=== PATIENT | male | born 1960 | race Caucasian/White ===

== ENCOUNTER 2025-03-25 19:35 | Inpatient (IN) | payer OTHER ==
[~2025-03-25] VITALS: Ht 177.8 cm; Wt 213.2 kg
[2025-03-25 20:49] LABS: HEMATOCRIT. 35.1 % (42.0-52.0); HEMOGLOBIN. 11.4 g/dL (14.0-18.0); MEAN PLATELET VOLUME 9.0 fl (7.4-10.4); PLATELET 228 x1000/uL (130-400); RED BLOOD CELL COUNT 4.11 mill/uL (4.7-6.1); RED CELL DISTRIBUTION WIDTH 14.9 % (11.6-14.6)
[2025-03-25 20:57] LABS: CREATININE 2.3 mg/dL (0.6-1.3); UREA NITROGEN BLOOD 41 mg/dL (9-23)
[2025-03-25 21:05] LABS: TROPONIN I HIGH SENSITIVITY 69 ng/L (3.0-53)
[2025-03-25] MEDS: ASPIRIN 325MG EC TABLET PO ONE (21:12)
[2025-03-25 21:14] LABS: BAND% 8.0 % (1.0-6.0); LYMPHOCYTES % MANUAL 13.0 % (20.0-50.0); METAMYELOCYTES % 1.0 % (0-0); MONOCYTES % MANUAL 4.0 % (2.0-8.0); NEUTROPHILS % MANUAL 74.0 % (45.0-75.0); PLATELET ESTIMATE NORMAL
[2025-03-25] MEDS: SODIUM CHLORIDE 0.9% (SEPSIS BOLUS) IV NR (21:48)
[2025-03-25 21:57] LABS: INR 1.1
[2025-03-25] MEDS: CEFTRIAXONE 1GM/50ML 50 ML IV NR (21:59)
[2025-03-25 22:17] LABS: LACTIC ACID 3.0 mmol/L (0.4-2.0)
[2025-03-26] MEDS ORDERED: IPRATROPIUM/ALBUTEROL 0.5-3(2.5)MG/3ML NEB HHN PRN (00:15)
[2025-03-26] MEDS ORDERED: ONDANSETRON HCL 4MG/2ML INJ IV PRN (00:15)
[2025-03-26] MEDS ORDERED: ACETAMINOPHEN 325MG TABLET PO PRN ×2 (00:15)
[2025-03-26] MEDS: SODIUM CHLORIDE 0.9% 1,000 ML IV SCH (01:15)
[2025-03-26] MEDS ORDERED: DEXTROSE 50% WATER 50ML SYRINGE IV PRN (01:15)
[2025-03-26 02:25] LABS: CLARITY URINE CLEAR (CLEAR); COLOR URINE YELLOW (YELLOW); GLUCOSE URINE NEGATIVE (NEGATIVE); KETONES URINE NEGATIVE (NEGATIVE); LEUKOCYTE ESTERASE URINE TRACE (NEGATIVE); NITRITE URINE NEGATIVE (NEGATIVE); OCCULT BLOOD URINE NEGATIVE (NEGATIVE); PH URINE 5.0 (4.5-8.0); PROTEIN URINE NEGATIVE (NEGATIVE); SPECIFIC GRAVITY URINE 1.014 (1.005-1.030); UROBILINOGEN URINE 0.2 E.U./dL (0.2-1.0)
[2025-03-26 02:28] LABS: *AMPHETAMINES SCREEN URINE NEGATIVE (NEGATIVE); *BARBITURATES SCREEN URINE NEGATIVE (NEGATIVE); *BENZODIAZEPINES SCREEN URINE NEGATIVE (NEGATIVE); *COCAINE SCREEN URINE NEGATIVE (NEGATIVE); CANNABINOID URINE SCREEN NEGATIVE (NEGATIVE); ECSTASY MDMA SCREEN URINE NEGATIVE (NEGATIVE); METHADONE URINE SCREEN NEGATIVE (NEGATIVE); OPIATES URINE SCREEN NEGATIVE (NEGATIVE); PHENCYCLIDINE URINE SCREEN NEGATIVE (NEGATIVE)
[2025-03-26 02:41] LABS: BACTERIA URINE TRACE; RBC URINE NONE SEEN /hpf (0-2); SQUAMOUS EPITHELIAL CELL URINE RARE /lpf (RARE/1+)
[2025-03-26 03:00] VITALS: BP 149/68; PULSE 96; RESP 20; TEMP 37.4
[2025-03-26] MEDS ORDERED: POTA-205 MT (03:35)
[2025-03-26] MEDS ORDERED: FURO40TA5 PO (03:41)
[2025-03-26] MEDS ORDERED: ATOR20TA PO (03:41)
[2025-03-26] MEDS ORDERED: LISI-649 PO (03:42)
[2025-03-26] MEDS: ENOXAPARIN 150MG/ML SYR SUBCUT SCH (03:44)
[2025-03-26] MEDS: BLOOD SUGAR DIAGNOSTIC STRIP TEST SCH (07:20)
[2025-03-26] MEDS: INSULIN LISPRO 100 UNITS/ML SUBCUT SCH (07:50)
[2025-03-26 08:00] VITALS: BP 155/68; PULSE 101; RESP 20; TEMP 38.5; O2SAT 99
[2025-03-26] MEDS: ASPIRIN 81MG EC TABLET PO SCH (09:51)
[2025-03-26] MEDS: FAMOTIDINE 20MG/2ML VIAL IV SCH (09:52)
[2025-03-26 11:47] LABS: CREATININE 1.8 mg/dL (0.6-1.3); TRIGLYCERIDE 58 mg/dL (0-150); UREA NITROGEN BLOOD 31 mg/dL (9-23)
[2025-03-26 11:48] LABS: ASPARTATE AMINOTRANSFERASE 68 IU/L (<34); LDL CHOLESTEROL 49 mg/dL (5-100)
[2025-03-26 11:49] LABS: BILIRUBIN DIRECT 0.2 mg/dL (<=3.0); BILIRUBIN TOTAL 0.5 mg/dL (0.1-1.0); PHOSPHORUS 2.6 mg/dL (2.5-4.9); PROTEIN TOTAL 7.5 g/dL (6.0-8.3)
[2025-03-26 11:51] LABS: T4 FREE 0.96 ng/dL (0.89-1.76)
[2025-03-26 12:00] VITALS: BP 124/68; PULSE 111; RESP 20; TEMP 38.2; O2SAT 97
[2025-03-26 12:23] LABS: LACTIC ACID 2.6 mmol/L (0.4-2.0)
[2025-03-26 12:40] LABS: TROPONIN I HIGH SENSITIVITY 3090 ng/L (3.0-53)
[2025-03-26 14:45] LABS: CORTISOL 23.5 ucg/dL
[2025-03-26 16:00] VITALS: BP 124/65; PULSE 113; RESP 20; TEMP 37.7; O2SAT 100
[2025-03-26 18:26] LABS: TROPONIN I HIGH SENSITIVITY 3268 ng/L (3.0-53)
[2025-03-26] MEDS: VANCOMYCIN 2GM PMX (XELLIA) 400 ML IV SCH (19:15)
[2025-03-26 20:00] VITALS: BP 135/66; PULSE 102; RESP 22; TEMP 36.2; O2SAT 99
[2025-03-26] MEDS: ATORVASTATIN CALCIUM 40MG TABLET PO SCH (21:36)
[2025-03-27] VITALS: BP 115/51; PULSE 96; RESP 22; TEMP 36.2; O2SAT 97
[2025-03-27 04:00] VITALS: BP 129/64; PULSE 87; RESP 22; TEMP 36.3; O2SAT 99
[2025-03-27 04:30] LABS: TROPONIN I HIGH SENSITIVITY 2561 ng/L (3.0-53)
[2025-03-27 06:13] LABS: HEMATOCRIT. 29.5 % (42.0-52.0); HEMOGLOBIN. 9.6 g/dL (14.0-18.0); MEAN PLATELET VOLUME 8.8 fl (7.4-10.4); PLATELET 164 x1000/uL (130-400); RED BLOOD CELL COUNT 3.53 mill/uL (4.7-6.1); RED CELL DISTRIBUTION WIDTH 15.2 % (11.6-14.6)
[2025-03-27 06:34] LABS: CREATININE 1.7 mg/dL (0.6-1.3); UREA NITROGEN BLOOD 27.0 mg/dL (9-23)
[2025-03-27 06:49] LABS: TROPONIN I HIGH SENSITIVITY 2054.0 ng/L (3.0-53)
[2025-03-27 08:00] VITALS: BP 107/60; PULSE 95; RESP 22; TEMP 36.5; O2SAT 97
[2025-03-27 12:00] VITALS: BP 119/44; PULSE 94; RESP 18; TEMP 36.7; O2SAT 99
[2025-03-27] MEDS ORDERED: TETRACAINE/BENZOCAINE/BUTAMBEN 20 GM SPRAY MM ONE (13:15)
[2025-03-27] MEDS ORDERED: LIDOCAINE 2% 6ML GLYDO ONE (13:15)
[2025-03-27 14:23] LABS: BAND% 12.0 % (1.0-6.0); EOSINOPHILS % MANUAL 1.0 % (0.0-5.0); LYMPHOCYTES % MANUAL 3.0 % (20.0-50.0); MONOCYTES % MANUAL 1.0 % (2.0-8.0); NEUTROPHILS % MANUAL 83.0 % (45.0-75.0)
[2025-03-27 14:25] LABS: PLATELET ESTIMATE NORMAL
[2025-03-27] MEDS ORDERED: FENTANYL CITRATE/PF 50MCG/ML 2ML VIAL ONE (14:39)
[2025-03-27] MEDS ORDERED: MIDAZOLAM HCL 5 MG/5 ML VIAL ONE (14:39)
[2025-03-27] MEDS ORDERED: DIPHENHYDRAMINE 50MG/ML VIAL ONE (14:46)
[2025-03-27 15:10] LABS: TROPONIN I HIGH SENSITIVITY 1726 ng/L (3.0-53)
[2025-03-27] MEDS: VANCOMYCIN 1.5GM PMX (XELLIA) 300 ML IV SCH (15:36)
[2025-03-27 16:00] VITALS: BP 107/54; PULSE 89; RESP 18; TEMP 36.5; O2SAT 96
[2025-03-27 18:13] LABS: TROPONIN I HIGH SENSITIVITY 1460 ng/L (3.0-53)
[2025-03-27 20:00] VITALS: BP 119/60; PULSE 84; RESP 20; TEMP 36.7; O2SAT 99
[2025-03-28] VITALS (8 sets, daily range): BP systolic 108–124; BP diastolic 49–68; PULSE 75–81; RESP 16–21; TEMP 36.3–36.7; O2SAT 97–98
[2025-03-28 07:54] LABS: BASOPHILS % 0.5 % (0.0-2.0); EOSINOPHILS % 3.6 % (0.0-5.0); HEMATOCRIT. 31.9 % (42.0-52.0); HEMOGLOBIN. 10.6 g/dL (14.0-18.0); LYMPHOCYTES % 8.4 % (20.0-50.0); MEAN PLATELET VOLUME 9.1 fl (7.4-10.4); MONOCYTES % 5.3 % (2.0-8.0); NEUTROPHILS % 82.2 % (40.0-76.0); PLATELET 173 x1000/uL (130-400); RED BLOOD CELL COUNT 3.75 mill/uL (4.7-6.1); RED CELL DISTRIBUTION WIDTH 15.2 % (11.6-14.6)
[2025-03-28 08:22] LABS: CREATININE 1.4 mg/dL (0.6-1.3); TRIGLYCERIDE 208.0 mg/dL (0-150)
[2025-03-28 08:23] LABS: LDL CHOLESTEROL 68.0 mg/dL (5-100); UREA NITROGEN BLOOD 18.0 mg/dL (9-23)
[2025-03-28 08:27] LABS: T4 FREE 0.84 ng/dL (0.89-1.76)
[2025-03-28 08:32] LABS: TROPONIN I HIGH SENSITIVITY 857.0 ng/L (3.0-53)
[2025-03-28] MEDS: VANCOMYCIN 1G PREMIX 200 ML IV SCH (13:42)
[2025-03-28] MEDS: SODIUM CHLORIDE 0.9% 1,000 ML IV SCH (13:45)
[2025-03-28] MEDS ORDERED: VANCOMYCIN 1.5 GM in DEXT 5% WATER 250 ML IV SCH (15:00)
[2025-03-28] MEDS: TRAMADOL 50MG TABLET PO PRN (15:59)
== END 2025-03-28 23:12 | disposition short-term general hospital (02) | DRG 871 ==
LOC: ER 19:35 → EDBEDREQ 19:59 → 6WST 23:35 → EDBEDREQ 23:37 → ENRESERV 23:44
PROVIDERS: ADMIT Hospitalist; ATTEND Hospitalist
DX: A40.1 Sepsis due to streptococcus, group B (principal); I21.4 Non-ST elevation (NSTEMI) myocardial infarction; N17.0 Acute kidney failure with tubular necrosis; L03.115 Cellulitis of right lower limb; E87.20 Acidosis, unspecified; Z68.44 Body mass index [BMI] 60.0-69.9, adult; E11.9 Type 2 diabetes mellitus without complications; I10 Essential (primary) hypertension; D64.9 Anemia, unspecified; K76.0 Fatty (change of) liver, not elsewhere classified; E05.90 Thyrotoxicosis, unspecified without thyrotoxic crisis or storm; E61.1 Iron deficiency; E66.01 Morbid (severe) obesity due to excess calories; E78.00 Pure hypercholesterolemia, unspecified; I87.8 Other specified disorders of veins; R59.0 Localized enlarged lymph nodes; B95.1 Streptococcus, group B, as the cause of diseases classified elsewhere; Z79.899 Other long term (current) drug therapy
CPT/HCPCS: 36415; 71045; 76770; 78580; 80048; 80061; 80076; 80202; 80305; 81003; 82533; 82550; 82728; 82962; 83036; 83540; 83550; 83605; 83735; 83880; 83930; 84100; 84145; 84439; 84443; 84484; 85025; 85379; 86850; 86900; 87077; 87186; 93005; 93306; 93312; 93970; 97166; 99291; A4606; J0696; J1200; J1308; J1650; J2250; J3010; J3370; J7030; J7060